=== PATIENT | female | born 1975 | race Caucasian/White ===

== ENCOUNTER 2019-03-22 18:30 | Emergency (ER) | payer OTHER ==
[~2019-03-22] VITALS: Ht 162.6 cm; Wt 65.9 kg
[2019-03-22 18:40] VITALS: BP 135/54
[2019-03-22] MEDS ORDERED: IBUP-1986 PO (20:37)
== END 2019-03-22 20:47 | disposition home or self-care (01) ==
LOC: ER 18:31
DX: M79.662 Pain in left lower leg (principal); F17.200 Nicotine dependence, unspecified, uncomplicated; Z88.6 Allergy status to analgesic agent; X58.XXXA Exposure to other specified factors, initial encounter; Y93.01 Activity, walking, marching and hiking; Y92.828 Other wilderness area as the place of occurrence of the external cause; Y99.8 Other external cause status
CPT/HCPCS: 73590; 99283